=== PATIENT | male | born 1945 | race Caucasian/White ===

== ENCOUNTER 2016-12-03 08:44 | Emergency (ER) | payer MEDICARE, MEDICAID ==
[~2016-12-03] VITALS: Ht 170.2 cm; Wt 64.1 kg
[~2016-12-03 08:44] MED LIST: HYDR-3138 PO; SULF1TAB3 PO
[2016-12-03 08:49] VITALS: BP 147/76
[2016-12-03] MEDS ORDERED: CEPHALEXIN 500 MG CAPSULE ONE (09:21)
[2016-12-03] MEDS ORDERED: OXYcodone/APAP 5/325MG TABLET ONE (09:21)
[2016-12-03] MEDS ORDERED: SULFAMETH./TRIMETHOPRIM DS 800MG/160MG TABLET ONE (09:22)
[2016-12-03] MEDS ORDERED: BACITRACIN ZINC OINT 500U/GM, 0.9 GM ONE (09:26)
[2016-12-03] MEDS ORDERED: OXYcodone/APAP 5/325MG TABLET PO ONE (09:30)
[2016-12-03] MEDS ORDERED: CEPHALEXIN 500 MG CAPSULE PO ONE (09:30)
[2016-12-03] MEDS ORDERED: SULFAMETH./TRIMETHOPRIM DS 800MG/160MG TABLET PO ONE (09:30)
== END 2016-12-03 09:58 | disposition home or self-care (01) ==
LOC: ED 09:01
DX: S54.21XA Injury of radial nerve at forearm level, right arm, initial encounter (principal); L03.011 Cellulitis of right finger; N40.0 Benign prostatic hyperplasia without lower urinary tract symptoms; V87.8XXA Person injured in other specified noncollision transport accidents involving motor vehicle (traffic), initial encounter; Y93.89 Activity, other specified; Y99.8 Other external cause status; Y92.410 Unspecified street and highway as the place of occurrence of the external cause
CPT/HCPCS: 99284

== ENCOUNTER 2016-12-07 10:46 | Emergency (ER) | payer MEDICARE, MEDICAID ==
[~2016-12-07] VITALS: Ht 170.2 cm; Wt 61.6 kg
[2016-12-07 10:47] VITALS: BP 113/68
== END 2016-12-07 11:50 | disposition home or self-care (01) ==
LOC: ED 11:00
DX: L02.511 Cutaneous abscess of right hand (principal)
CPT/HCPCS: 99283

== ENCOUNTER 2017-01-02 14:04 | Emergency (ER) | payer MEDICARE, MEDICAID ==
[~2017-01-02] VITALS: Ht 170.2 cm; Wt 60.0 kg
[2017-01-02 14:06] VITALS: BP 157/94
[2017-01-02 15:42] LABS: ASPARTATE AMINO TRANSFERASE 56 U/L (15-37); BLOOD UREA NITROGEN 14 mg/dL (7-18)
== END 2017-01-02 19:05 | disposition home or self-care (01) ==
LOC: ED 18:58
DX: M47.892 Other spondylosis, cervical region (principal); M62.81 Muscle weakness (generalized)
CPT/HCPCS: 36415; 72050; 72125; 80053; 85025; 99285

== ENCOUNTER 2017-09-01 11:31 | Emergency (ER) | payer MEDICARE ==
[~2017-09-01] VITALS: Ht 172.7 cm; Wt 63.0 kg
[~2017-09-01 11:31] MED LIST changes: +ACID1TAB7 PO; +CLIN300C8 PO; -HYDR-3138 PO; +HYDR-3237 PO; +HYDR-3240 PO; +SULF-169 PO; -SULF1TAB3 PO
[2017-09-01 14:43] VITALS: BP 156/87
== END 2017-09-01 14:46 | disposition home or self-care (01) ==
LOC: ED 14:45
DX: S13.4XXA Sprain of ligaments of cervical spine, initial encounter (principal); M47.892 Other spondylosis, cervical region; I10 Essential (primary) hypertension; X58.XXXA Exposure to other specified factors, initial encounter; Y93.89 Activity, other specified; Y92.89 Other specified places as the place of occurrence of the external cause; Y99.8 Other external cause status
CPT/HCPCS: 72125; 99284

== ENCOUNTER 2018-07-21 07:08 | Emergency (ER) | payer MEDICARE ==
[~2018-07-21] VITALS: Ht 170.2 cm; Wt 62.0 kg
[2018-07-21 07:12] VITALS: BP 138/85
== END 2018-07-21 08:16 | disposition home or self-care (01) ==
LOC: ED 07:59
DX: H10.023 Other mucopurulent conjunctivitis, bilateral (principal); I10 Essential (primary) hypertension; Z86.14 Personal history of Methicillin resistant Staphylococcus aureus infection
CPT/HCPCS: 99283

== ENCOUNTER 2019-01-02 06:51 | Inpatient (IN) | payer MEDICARE ==
[~2019-01-02] VITALS: Ht 170.2 cm; Wt 58.5 kg
[~2019-01-02 06:51] MED LIST changes: +AMLO-150 PO; +CALC200T3 PO; +CHOL10003 PO; +DOCU100C33 PO; +FERR324T5 PO; +HEPA1DIS9 SQ; +LIDO700A42 TP; +LISI-170 PO; +METH500T7 PO; +MV-M1TAB35 PO
--- NOTE | 2019-01-02 07:12 | NUR ---
First contact with pt. Pt c/o L anterior [place] wound x1 week after "getting bitten by a spider or something". Pt with reddened skin, purulent drainage noted to wound. Pt ambulatory with steady gait, CMS intact. Pt place in gown, positioned for comfort in bed. Continuous oxygen and BP monitors applied, all safety measures observed.
[2019-01-02] MEDS ORDERED: SODIUM CHLORIDE FLUSH 10ML SYR IVF ONE ×2 (07:30→08:00)
[2019-01-02 07:44] LABS: BASOPHILS # (AUTO) 0.03 x10^3/uL (0-0.1); BASOPHILS % (AUTO) 0 % (0-1); EOSINOPHILS # (AUTO) 0.32 x10^3/uL (0-0.4); EOSINOPHILS % (AUTO) 5 % (1-7); LYMPHOCYTES # (AUTO) 1.35 x10^3/uL (1-3.4); LYMPHOCYTES % (AUTO) 19 % (22-44); MD NO; MEAN CORPUSCULAR HGB CONC 32.4 g/dL (33.2-36.2); MEAN CORPUSCULAR VOLUME 86.3 fL (81-97); MEAN PLATELET VOLUME 7.3 fL (7.4-10.4); MONOCYTES # (AUTO) 0.58 x10^3/uL (0.2-0.8); MONOCYTES % (AUTO) 8 % (2-9); NEUTROPHILS # (AUTO) 4.98 x10^3/uL (1.8-6.8); NEUTROPHILS % (AUTO) 69 % (42-75); PLATELET COUNT 358 x10^3/uL (130-400); RED CELL DISTRIBUTION WIDTH 18.5 % (9.4-14.8)
--- NOTE | 2019-01-02 07:52 | NUR ---
Attempted IV access per order, unsuccessful. Second RN to attempt.
[2019-01-02 07:53] LABS: ALBUMIN 3.1 g/dL (3.4-5.0); ANION GAP 5 mmol/L (5-15); CALCIUM 8.8 mg/dL (8.5-10.1); CHLORIDE 105 mmol/L (98-107); CREATININE 0.76 mg/dL (0.7-1.3)
[2019-01-02] MEDS ORDERED: VANCOMYCIN PER PHARMACY IV ONE (08:00)
[2019-01-02] MEDS ORDERED: VANCOMYCIN 1,300 MG in SODIUM CHLORIDE 0.9% 250 ML IV ONE (08:00)
[2019-01-02] MEDS ORDERED: AMPICILLIN/SULBACTAM 3 GM in SODIUM CHLORIDE 0.9% 100 ML IV ONE (08:00)
--- NOTE | 2019-01-02 08:01 | NUR ---
IV abx initiated per OCT. No blood cultures per Jan MCKINNON
--- NOTE | 2019-01-02 08:37 | NUR ---
Pt sitting in bed watching TV, NADN, denies needs.
[2019-01-02] MEDS ORDERED: SODIUM CHLORIDE FLUSH 10ML SYR IVF PRN (09:00)
--- NOTE | 2019-01-02 09:21 | NUR ---
[facility] at bedside to evaluate pt for admission.
--- NOTE | 2019-01-02 09:40 | NUR ---
Pt continually bending arm and blocking IV. Pt encouraged to keep his arm straight. Pt continually picking at L LE wound. Pt encouraged not to do this.
[2019-01-02] MEDS ORDERED: hydrALAzine 20 MG/ML, 1ML IVPush PRN (10:00)
[2019-01-02] MEDS: HEPARIN 5,000 UNITS/ML, 1ML SQ SCH ×2 (10:00→17:34)
--- NOTE | 2019-01-02 10:27 | NUR ---
Report called to Sarah RAE. Floor ready for pt transport.
[2019-01-02 11:15] VITALS: BP 144/64
[2019-01-02] MEDS: CEFTRIAXONE PMX 2GM/50ML 50 ML IV SCH (11:35)
[2019-01-02 12:03] VITALS: BP 114/64
[2019-01-02 14:20] VITALS: BP 144/74
[2019-01-02] MEDS: ACETAMINOPHEN 325 MG TABLET PO PRN ×2 (16:52→23:33)
[2019-01-02 19:56] VITALS: BP 101/62
[2019-01-02] MEDS ORDERED: DOXYCYCLINE 100MG CAP PO SCH (21:00)
[2019-01-03] MEDS: HEPARIN 5,000 UNITS/ML, 1ML SQ SCH ×3 (02:00→18:00)
[2019-01-03 03:17] VITALS: BP 108/60
[2019-01-03] MEDS: ACETAMINOPHEN 325 MG TABLET PO PRN ×2 (05:45→21:07)
[2019-01-03 06:28] LABS: BASOPHILS # (AUTO) 0.05 x10^3/uL (0-0.1); BASOPHILS % (AUTO) 1 % (0-1); EOSINOPHILS # (AUTO) 0.61 x10^3/uL (0-0.4); EOSINOPHILS % (AUTO) 11 % (1-7); LYMPHOCYTES # (AUTO) 1.87 x10^3/uL (1-3.4); LYMPHOCYTES % (AUTO) 34 % (22-44); MD NO; MEAN CORPUSCULAR HEMOGLOBIN 27.6 pg (27.5-34.5); MEAN CORPUSCULAR HGB CONC 31.9 g/dL (33.2-36.2); MEAN CORPUSCULAR VOLUME 86.6 fL (81-97); MONOCYTES # (AUTO) 0.73 x10^3/uL (0.2-0.8); MONOCYTES % (AUTO) 13 % (2-9); NEUTROPHILS # (AUTO) 2.29 x10^3/uL (1.8-6.8); NEUTROPHILS % (AUTO) 41 % (42-75); PLATELET COUNT 301 x10^3/uL (130-400); RED BLOOD COUNT 4.51 x10^6/uL (4.38-5.82); RED CELL DISTRIBUTION WIDTH 19.1 % (9.4-14.8)
[2019-01-03 06:42] VITALS: BP 138/94
[2019-01-03 06:55] LABS: CHLORIDE 104 mmol/L (98-107)
[2019-01-03 07:00] LABS: ANION GAP 6 mmol/L (5-15); CALCIUM 8.5 mg/dL (8.5-10.1); CREATININE 0.75 mg/dL (0.7-1.3)
[2019-01-03] MEDS: DOXYCYCLINE 100MG CAP PO SCH ×2 (08:54→21:07)
[2019-01-03] MEDS: CEFTRIAXONE PMX 2GM/50ML 50 ML IV SCH (08:55)
[2019-01-03 12:26] VITALS: BP 115/78
[2019-01-03] MEDS: MUPIROCIN OINT 2%, 22GM TP SCH (18:21)
[2019-01-03 19:46] VITALS: BP 123/78
[2019-01-03] MEDS ORDERED: DIPHENHYDRAMINE 50 MG CAPSULE ONE (21:46)
[2019-01-03] MEDS ORDERED: DIPHENHYDRAMINE 50 MG CAPSULE PO ONE (22:00)
[2019-01-04] MEDS: HEPARIN 5,000 UNITS/ML, 1ML SQ SCH ×2 (02:19→10:00)
[2019-01-04 02:30] VITALS: BP 138/94
[2019-01-04] MEDS: ACETAMINOPHEN 325 MG TABLET PO PRN (02:47)
[2019-01-04 05:23] LABS: BASOPHILS # (AUTO) 0.05 x10^3/uL (0-0.1); BASOPHILS % (AUTO) 1 % (0-1); EOSINOPHILS # (AUTO) 0.63 x10^3/uL (0-0.4); EOSINOPHILS % (AUTO) 12 % (1-7); LYMPHOCYTES # (AUTO) 2.19 x10^3/uL (1-3.4); LYMPHOCYTES % (AUTO) 41 % (22-44); MD NO; MEAN CORPUSCULAR HEMOGLOBIN 27.5 pg (27.5-34.5); MEAN CORPUSCULAR HGB CONC 32.1 g/dL (33.2-36.2); MEAN CORPUSCULAR VOLUME 85.9 fL (81-97); MEAN PLATELET VOLUME 7.8 fL (7.4-10.4); MONOCYTES # (AUTO) 0.74 x10^3/uL (0.2-0.8); MONOCYTES % (AUTO) 14 % (2-9); NEUTROPHILS # (AUTO) 1.77 x10^3/uL (1.8-6.8); NEUTROPHILS % (AUTO) 33 % (42-75); PLATELET COUNT 336 x10^3/uL (130-400); RED BLOOD COUNT 4.63 x10^6/uL (4.38-5.82)
[2019-01-04 05:34] LABS: ANION GAP 4 mmol/L (5-15); CALCIUM 9.2 mg/dL (8.5-10.1); CHLORIDE 102 mmol/L (98-107)
[2019-01-04 05:35] LABS: CREATININE 0.87 mg/dL (0.7-1.3)
[2019-01-04] MEDS: MUPIROCIN OINT 2%, 22GM TP SCH (06:19)
[2019-01-04 07:29] VITALS: BP 135/84
[2019-01-04] MEDS ORDERED: SIMETHICONE 80 MG CHEW TAB PO PRN (08:00)
[2019-01-04] MEDS ORDERED: DOXY100C2 PO (08:03)
[2019-01-04] MEDS ORDERED: CEFD300C37 PO (08:03)
[2019-01-04] MEDS: DOXYCYCLINE 100MG CAP PO SCH (08:52)
[2019-01-04] MEDS: CEFTRIAXONE PMX 2GM/50ML 50 ML IV SCH (10:00)
== END 2019-01-04 10:53 | disposition home or self-care (01) | DRG 603 ==
LOC: ED 07:52 → EDIP 09:13 → 4NOR 11:07
PROVIDERS: ADMIT Hospitalist; ATTEND Hospitalist
DX: L03.116 Cellulitis of left lower limb (principal); F17.200 Nicotine dependence, unspecified, uncomplicated; I10 Essential (primary) hypertension; N40.0 Benign prostatic hyperplasia without lower urinary tract symptoms; Z86.14 Personal history of Methicillin resistant Staphylococcus aureus infection; Z86.72 Personal history of thrombophlebitis
CPT/HCPCS: 36415; 80048; 82040; 85025; 96374; 96375; 99285; G0378; J0696; J3370; J7050

== ENCOUNTER 2019-01-08 07:26 | Emergency (ER) | payer MEDICARE ==
[~2019-01-08] VITALS: Ht 170.2 cm; Wt 62.9 kg
[~2019-01-08 07:26] MED LIST changes: +CEFD300C37 PO; +DOXY100C2 PO
[2019-01-08 07:28] VITALS: BP 134/79
[2019-01-08] MEDS ORDERED: BACITRACIN ZINC OINT 500U/GM, 0.9 GM ONE (08:55)
== END 2019-01-08 09:28 | disposition home or self-care (01) ==
LOC: ED 08:04
DX: L97.229 Non-pressure chronic ulcer of left calf with unspecified severity (principal)
CPT/HCPCS: 99281; 99283

== ENCOUNTER 2019-03-22 06:17 | Emergency (ER) | payer MEDICARE ==
[~2019-03-22] VITALS: Ht 170.2 cm; Wt 55.9 kg
[2019-03-22 08:30] VITALS: BP 109/55
== END 2019-03-22 08:33 | disposition home or self-care (01) ==
LOC: ED 06:49
DX: N30.00 Acute cystitis without hematuria (principal); N28.9 Disorder of kidney and ureter, unspecified; I10 Essential (primary) hypertension; Z86.14 Personal history of Methicillin resistant Staphylococcus aureus infection; F17.200 Nicotine dependence, unspecified, uncomplicated
CPT/HCPCS: 36415; 80048; 81001; 82040; 85025; 87086; 96372; 99283; J0696

== ENCOUNTER 2019-08-06 18:46 | Emergency (ER) | payer MEDICARE ==
[~2019-08-06 18:46] MED LIST changes: +AMOX1TAB64 PO; +FINA5TAB4 PO; +TAMS-11 PO; +TRIA15CR61 TP
--- NOTE | 2019-08-06 18:54 | NUR ---
PER EMS REPORT, PT HAS LICE. PT IS STILL IN DECON ROOM. AFTER CLEARED OF LICE, PT CAN GO BACK TO [facility]. BEDSIDE REPORT TO KYRA ASHLEY.
--- NOTE | 2019-08-06 19:01 | NUR ---
RECEIVED REPORT FROM KYRA MIJARES. PT CURRENTLY IN DECON FOR LICE.
--- NOTE | 2019-08-06 19:06 | NUR ---
M[facility]RO W/ LEANN, ED MANAGER RELOCATION. PT STATES NO MEDICAL COMPLAINTS. ERP DR. MARIA NOTIFIED.
--- NOTE | 2019-08-06 19:28 | NUR ---
PT AGREED TO SHAVE HIS HEAD TO REMOVE LICE. PT CURRENTLY HAVING HAIR REMOVED. HAT TO BE PROVIDED FOR PT.
--- NOTE | 2019-08-06 19:58 | NUR ---
[facility] WILL HAVE A BED FOR PT IF HE HAS A MEDICAL RELEASE OF BEING LICE FREE AND CLEAN CLOTHES.
[2019-08-06] MEDS ORDERED: PERMETHRIN CRM 5%, 60GM TP ONE (20:00)
--- NOTE | 2019-08-06 20:00 | NUR ---
[facility] CALLED FOR PT. PT PROVIDED W/ TAXI VOUCHER AND MEDICAL CLEARANCE PAPERWORK.
== END 2019-08-06 20:07 | disposition home or self-care (01) ==
LOC: ED 20:01
DX: B85.0 Pediculosis due to Pediculus humanus capitis (principal); I10 Essential (primary) hypertension
CPT/HCPCS: 99283

== ENCOUNTER 2019-08-07 19:07 | Emergency (ER) | payer MEDICARE ==
[~2019-08-07] VITALS: Ht 170.2 cm; Wt 75.0 kg
[2019-08-07] MEDS ORDERED: PIPERONYL BUTOXIDE/PYRETHRINS SHAMPOO ONE (19:10)
[2019-08-07 19:21] VITALS: BP 130/78
--- NOTE | 2019-08-07 19:33 | NUR ---
PT TO SHOWER ON ARRIVAL TO ED. SHOWER WITH LICE SHAMPOO USED-ASSISTED BY AUTOMOBILE REPAIR SERVICE ESTIMATOR. CLEAN CLOTHES PROVIDED, PT TO ROOM 31
[2019-08-07] MEDS ORDERED: PIPERONYL BUTOXIDE/PYRETHRINS SHAMPOO TP SCH ×2 (20:00)
--- NOTE | 2019-08-07 20:06 | NUR ---
AT TIME OF DISCHARGE, PT REMOVED LICE CONTAMINATED CLOTHES FROM BAG AND PUT OVER CLEAN CLOTHES. PT INFORMED TO NOT DO SO, BUT REFUSED TO ACKNOWLEDGE.
[2019-08-07] MEDS ORDERED: PIPERONYL BUTOXIDE/PYRETHRINS SHAMPOO TP ONE (20:30)
== END 2019-08-07 20:11 | disposition home or self-care (01) ==
LOC: ED 19:54
DX: B85.0 Pediculosis due to Pediculus humanus capitis (principal); I10 Essential (primary) hypertension
CPT/HCPCS: 99283

== ENCOUNTER 2019-12-18 06:43 | Emergency (ER) | payer MEDICARE ==
[~2019-12-18] VITALS: Ht 172.7 cm; Wt 63.0 kg
[2019-12-18] MEDS ORDERED: KETOROLAC 30 MG/1 ML IM ONE (07:00)
[2019-12-18 07:01] VITALS: BP 92/59
--- NOTE | 2019-12-18 07:04 | NUR ---
PT BIB [facility] FOR C/O R ARM NUMBNESS AND R NECK PAIN X 2 DAYS PER REPORT. PT WITH VSS, NO INTERVENTIONS FLAKER TENDER. PT DENIES INJURY. PT ARRIVES WITH BUGS CRAWLING ALL OVER PT. PT EXAMINED BY GLORIA, PLAN TO DECON PT AND MOVE TO CLEAN ROOM, HYDROPONICS GROWER MADE AWARE
[2019-12-18] MEDS ORDERED: KETOROLAC 30 MG/1 ML ONE (07:29)
[2019-12-18] MEDS ORDERED: PLEASE ENTER HEIGHT AND WEIGHT MC SCH (07:30)
--- NOTE | 2019-12-18 08:01 | NUR ---
PT TO IMAGING AT THIS TIME
--- NOTE | 2019-12-18 09:33 | NUR ---
PT PROVIDED WITH CLEAN CLOTHES FROM [facility]ATION CLOSET.
== END 2019-12-18 09:58 | disposition home or self-care (01) ==
LOC: ED 07:23
DX: M54.12 Radiculopathy, cervical region (principal); B85.1 Pediculosis due to Pediculus humanus corporis; M19.90 Unspecified osteoarthritis, unspecified site; R20.8 Other disturbances of skin sensation; M25.511 Pain in right shoulder; I10 Essential (primary) hypertension
CPT/HCPCS: 29125; 73030; 96372; 99283; J1885

== ENCOUNTER 2020-07-13 12:19 | Emergency (ER) | payer MEDICARE ==
[~2020-07-13] VITALS: Ht 170.2 cm; Wt 63.6 kg
--- NOTE | 2020-07-13 12:20 | NUR ---
[facility] . PER EMS, PT C/O R ARM CRAMPING & L QUAD CRAMPING X 2 DAYS. DENIES MED HX/MEDS/ALLERGIES. VSS PER EMS. PT NOTED TO HAVE LICE & BEDBUGS PER EMS. PT BROUGHT IMMEDIATELY TO DECON ROOM. SHOWERED WITH LICE SHAMPOO WITH ASSISTANCE FROM HEEL SCOURER. BELONGINGS DOUBLE BAGGED.
[2020-07-13] MEDS ORDERED: PERMETHRIN CRM 5%, 60GM ONE (12:25)
[2020-07-13] MEDS ORDERED: PIPERONYL BUTOXIDE/PYRETHRINS SHAMPOO TP SCH (12:30)
[2020-07-13] MEDS ORDERED: PERMETHRIN CRM 5%, 60GM TP SCH (12:30)
[2020-07-13] MEDS ORDERED: PIPERONYL BUTOXIDE/PYRETHRINS SHAMPOO ONE (12:32)
[2020-07-13] MEDS ORDERED: PLEASE ENTER HEIGHT AND WEIGHT MC SCH (13:00)
[2020-07-13 13:11] VITALS: BP 134/60
--- NOTE | 2020-07-13 13:13 | NUR ---
PT BROUGHT BACK TO ROOM VIA WC. SPECIAL CONTACT ISOLATION IN PLACE. WATER & JUICE PROVIDED TO PT. ER PA WAS IN TO SEE PT.
--- NOTE | 2020-07-13 13:13 | NUR ---
THIS TECH ASSISTED PT IN DECON ROOM TO SHOWER TO REMOVE LICE. AFTER SHOWER, HEAD LICE SHAMPOO WAS PROVIDED. THIS TECH ASSISTED PT IN APPLYING SHAMPOO, WASHING AND RINSING HAIR, AND USING PROVIDED HEAD LICE BRUSH. PT'S BELONGINGS WERE DOUBLE BAGGED AND PT WAS TAKEN TO ROOM.
[2020-07-13] MEDS ORDERED: ACETAMINOPHEN 325 MG TABLET ONE (13:16)
[2020-07-13] MEDS ORDERED: CYCLOBENZAPRINE 10 MG TABLET ONE (13:16)
[2020-07-13] MEDS ORDERED: KETOROLAC 30 MG/1 ML ONE (13:16)
[2020-07-13] MEDS ORDERED: ACETAMINOPHEN 325 MG TABLET PO ONE (13:30)
[2020-07-13] MEDS ORDERED: KETOROLAC 30 MG/1 ML IM ONE (13:30)
[2020-07-13] MEDS ORDERED: CYCLOBENZAPRINE 10 MG TABLET PO ONE (13:30)
--- NOTE | 2020-07-13 13:42 | NUR ---
PT MEDICATED PER ORDERS. UNDERSTANDS POC.
[2020-07-13 13:57] LABS: MEAN CORPUSCULAR HEMOGLOBIN 22.5 pg (27.5-34.5); MEAN CORPUSCULAR HGB CONC 31.8 g/dL (33.2-36.2); MEAN PLATELET VOLUME 7.6 fL (7.4-10.4); PLATELET COUNT 339 x10^3/uL (130-400); RED BLOOD COUNT 3.85 x10^6/uL (4.38-5.82); RED CELL DISTRIBUTION WIDTH 17.3 % (9.4-14.8)
[2020-07-13 14:09] LABS: ALBUMIN 3.5 g/dL (3.4-5.0); ANION GAP 7 mmol/L (5-15); CALCIUM 8.8 mg/dL (8.5-10.1); CHLORIDE 107 mmol/L (98-107)
[2020-07-13 14:14] LABS: ALANINE AMINOTRANSFERASE 25 U/L (12-78); ALKALINE PHOSPHATASE 105 U/L (45-117); BILIRUBIN,TOTAL 0.5 mg/dL (0.2-1.0); CREATININE 1.09 mg/dL (0.7-1.3); TOTAL PROTEIN 8.5 g/dL (6.4-8.2)
--- NOTE | 2020-07-13 14:24 | NUR ---
RECTAL EXAM DONE BY ER PA WITH RN AT BS.
[2020-07-13 14:34] LABS: MD YES
[2020-07-13 14:47] LABS: BASOS% (MANUAL) 1 % (0-1); EOS#(MANUAL) 2.97 x10^3/uL (0.0-0.4); EOS% (MANUAL) 30 % (1-7); LYMPH#(MANUAL) 1.78 x10^3/uL (1-3.4); LYMPHS% (MANUAL) 18 % (22-44); MONOS% (MANUAL) 2 % (2-9); SEG#(MANUAL) 4.85 x10^3/uL (1.8-6.8); SEGS% (MANUAL) 49 % (42-75)
[2020-07-13 14:49] LABS: ANISOCYTOSIS 1+
[2020-07-13 14:50] LABS: HYPOCHROMIA 2+; MICROCYTOSIS 1+; POLYCHROMASIA 1+
[2020-07-13 14:52] LABS: <PLATELET ESTIMATE> ADEQUATE; LARGE PLATELETS 1+; OVALOCYTES 1+
== END 2020-07-13 15:39 | disposition home or self-care (01) ==
LOC: ED 14:42
DX: D53.9 Nutritional anemia, unspecified (principal); R25.2 Cramp and spasm; M79.642 Pain in left hand; M79.641 Pain in right hand; M79.605 Pain in left leg; M79.604 Pain in right leg; I10 Essential (primary) hypertension
CPT/HCPCS: 36415; 80053; 83735; 85025; 96372; 99284; J1885

== ENCOUNTER 2020-09-18 08:59 | Emergency (ER) | payer MEDICARE ==
[~2020-09-18] VITALS: Ht 172.7 cm; Wt 87.0 kg
[~2020-09-18 08:59] MED LIST changes: -CLIN300C8 PO; +CLIN300C9 PO; +HYDR-1067 PO; -HYDR-3240 PO; +METH-639 PO; -METH500T7 PO
[2020-09-18] MEDS ORDERED: PIPERONYL BUTOXIDE/PYRETHRINS 4OZ. SHAMPOO ONE (09:01)
--- NOTE | 2020-09-18 09:29 | NUR ---
Pt in decon room
[2020-09-18 09:40] VITALS: BP 132/72
--- NOTE | 2020-09-18 10:05 | NUR ---
Pt in room. Decon complete. Request from PA to shave pt's head. lice still very prolific.
--- NOTE | 2020-09-18 11:04 | NUR ---
Pt refused DC papers and prescription prior to DC.
== END 2020-09-18 11:08 | disposition home or self-care (01) ==
LOC: ED 10:41
DX: B85.1 Pediculosis due to Pediculus humanus corporis (principal); F17.210 Nicotine dependence, cigarettes, uncomplicated; B85.0 Pediculosis due to Pediculus humanus capitis; Z72.9 Problem related to lifestyle, unspecified
CPT/HCPCS: 99283